=== PATIENT | female | born 1960 | race Caucasian/White ===

== ENCOUNTER 2022-03-22 20:22 | Emergency (ER) | payer BC, SELFPAY ==
--- NOTE | ~2022-03-22 | XR_ITS ---
EXAMINATION: XR CHEST CLINICAL INFORMATION: Covid positive. Pain. COMPARISON: None TECHNIQUE: 2 views of the chest were obtained. FINDINGS: The lungs are well expanded. There is no focal consolidation, edema, or effusion. No pneumothorax. The cardiomediastinal silhouette is within normal limits. No acute osseous abnormality. XR/XR chest 2V IMPRESSION: Clear lungs.
[2022-03-22 20:39] VITALS: BP 150/82; PULSE 82; RESP 18; TEMP 36.7; O2SAT 96; BMI 34.7
[2022-03-22 20:55] LABS: MANUAL DIFF FLAG NO
[2022-03-22 20:57] LABS: Basophils Percent Auto 0.4 % (0-2); Eosinophils Absolute Auto 0.2 X10*3/uL (0.0-0.4); Eosinophils Percent Auto 2.9 % (0-4); Hematocrit 44.4 % (37.0-47.0); Hemoglobin 14.8 g/dl (12.0-16.0); Imm Gran Abs Auto 0.03 X10*3/uL (0.00-0.03); Imm Gran Pct Auto 0.4 % (0.0-0.4); Lymphocytes Absolute Auto 3.4 X10*3/uL (1.2-4.9); Lymphocytes Percent Auto 46.8 % (20-40); Mean Corpuscular HGB Conc 33.3 g/dl (31.0-35.0); Mean Corpuscular Hemoglobin 29.7 pg (27.0-33.0); Mean Platelet Volume 9.3 fL (9.4-12.3); Monocytes Absolute Auto 0.5 X10*3/uL (0.1-1.2); Monocytes Percent Auto 6.3 % (2-11); Neutrophils Absolute Auto 3.2 x10*3/uL (2.0-8.3); Neutrophils Percent Auto 43.2 % (45-73); Platelet Count 274 X10*3/uL (160-400); Red Blood Count 4.99 X10*6/uL (4.20-5.50); Red Cell Distribution Width 13.5 % (11.0-16.0); White Blood Count 7.3 X10*3/uL (4.8-10.8)
[2022-03-22 21:11] LABS: COVID-19 Test Positive (Negative); IDNOW Serial# 16C4AD1C
[2022-03-22 21:11] LABS: Alanine Aminotransferase 11 U/L (0-31); Albumin Level 4.1 g/dL (3.5-5.0); Alkaline Phosphatase 64 U/L (39-117); Anion Gap 17 (12-20); Aspartate Amino Transferase 25 U/L (5-31); Bilirubin Direct < 0.2 mg/dL (0.0-0.5); Bilirubin Total 0.3 mg/dL (0.0-1.0); Blood Urea Nitrogen 14 mg/dL (9-16); Calcium 9.3 mg/dL (8.4-10.2); Carbon Dioxide 22 mmol/L (22-29); Chloride 108 mmol/L (96-108); Creatinine Clr Calc Pharmacy 82.7; Estimated Glomerular Filt Rate > 60; Glucose Random 108 mg/dL (60-115); Sodium 143 mmol/L (135-145); Total Protein 7.7 g/dL (6.5-8.0)
--- NOTE | 2022-03-22 23:59 | PC.NURSE ---
Pt visibly upset regarding wait time and nursing staff being unable to give test results out w/o the evaluation of the physician/provider. Pt educated to process of er evaluation. Verbalized education. Pt encouraged to remain in ED until evaluation is preformed. no questions regarding education.
[2022-03-23 03:05] VITALS: BP 147/78; PULSE 70; RESP 18; TEMP 36.7; O2SAT 97
--- NOTE | 2022-03-23 07:00 | ED_ITS ---
HPI - Abdominal Pain General Chief Complaint: Abdominal Pain Stated Complaint: diverticulitis Time Seen by Provider: 03/23/22 06:51 Source: patient Mode of arrival: ambulatory Limitations: no limitations History of Present Illness HPI narrative: Patient presented complaining of left lower quadrant abdominal pain at x2 days she thinks that she has diverticulitis, she has these similar pain when she had a diverticulitis, denies any fever chills vomiting and diarrhea. MD elicited complaint: abdominal pain Onset (ago): day(s) (2) Pain Consistency: constant Location: LLQ Severity: mild Quality: cramping Migration to: no migration Exacerbating factors: nothing Relieving factors: nothing Associated symptoms: denies other symptoms Related Data Previous Rx's Medication Instructions Recorded ciprofloxacin HCl 500 mg tablet 500 mg PO BID #20 tabs 03/23/22 (Cipro) metronidazole 500 mg tablet 500 mg PO Q8H 10 days #30 tabs 03/23/22 Allergies Allergy/AdvReac Type Severity Reaction Status Date / Time bee pollen [Bee Stings] Allergy Unknown SWELLING Unverified 04/19/20 14:48 insect venom [INSECT BITES] Allergy Unknown SWELLING Unverified 04/19/20 14:48 spider venom [SPIDER BITES] Allergy Unknown SWELLING Unverified 04/19/20 14:48 Review of Systems Cardiovascular: Reports no additional cardiovascular complaints Respiratory: Reports no additional respiratory complaints Gastrointestinal: Reports abdominal pain Reports system reviewed and no additional complaints, except as documented [facility] Past Medical History [facility] Narrative: diverticulitis Social History Social History Advance Directives: No Advance Directives Information Provided: No Physical Exam ED Vital Signs: Vital Signs - 24 hr 03/22/22 20:39 03/23/22 03:05 Temperature 98.1 F 98.1 F Pulse Rate 82 70 Respiratory Rate 18 18 Blood Pressure 150/82 H 147/78 H Pulse Oximetry 96 97 Oxygen Delivery Method Room Air Room Air BMI result Body Mass Index 34.7 Const Other: She looks well he is not toxic-appearing HENMT Head: Yes normal to inspection Ears: hearing grossly normal bilaterally General nose exam: Normal external nose present Face and sinus: Yes normal facial exam Throat: Yes posterior oropharynx normal Neck Neck: Yes normal visual inspection Thyroid: Thyroid normal Chest Chest palpation & inspection: normal inspection of the chest Resp Effort & Inspection: normal respiratory effort Cardio Rate: regular rate Rhythm: regular rhythm GI Other: Tenderness in the left lower quadrant no guarding and no rebound no peritoneal signs Skin General skin exam: no rashes or lesions noted Lesions: no lesions Rashes: no rashes MDM - Abdominal Pain MDM Narrative Medical decision making narrative: I discussed with the patient CT scan of the abdomen and pelvis, the patient refused a CT scan of the abdomen and pelvis she states she wants to try just antibiotic before, I will discharge her on Cipro and Flagyl, she will return if worse the any concern. Again she refuses a CT scan done today. Lab Data Result diagrams: 03/22/22 20:47 03/22/22 20:47 Labs: Lab Results 03/22/22 03/22/22 03/22/22 Range/Units 20:44 20:47 20:47 WBC 7.3 (4.8-10.8) X10*3/uL RBC 4.99 (4.20-5.50) X10*6/uL Hgb 14.8 (12.0-16.0) g/dl Hct 44.4 (37.0-47.0) % MCV 89.0 (80.0-98.0) fL MCH 29.7 (27.0-33.0) pg MCHC 33.3 (31.0-35.0) g/dl RDW 13.5 (11.0-16.0) % Plt Count 274 (160-400) X10*3/uL MPV 9.3 L (9.4-12.3) fL Immature Gran % (Auto) 0.4 (0.0-0.4) % Neut % (Auto) 43.2 L (45-73) % Lymph % (Auto) 46.8 H (20-40) % [place] % (Auto) 6.3 (2-11) % Eos % (Auto) 2.9 (0-4) % Baso % (Auto) 0.4 (0-2) % Lymph # (Auto) 3.4 (1.2-4.9) X10*3/uL [place] # (Auto) 0.5 (0.1-1.2) X10*3/uL Eos # (Auto) 0.2 (0.0-0.4) X10*3/uL Baso # (Auto) 0.0 (0.0-0.2) X10*3/uL Abs Immat Gran (auto) 0.03 (0.00-0.03) X10*3/uL Absolute Neuts (auto) 3.2 (2.0-8.3) x10*3/uL Absolute Nucleated RBC 0.000 (0.0-0.012) X10*3/uL Nucleated RBC % (auto) 0.0 (0.0-0.2) /100WBC Sodium 143 (135-145) mmol/L Potassium 4.0 (3.3-5.1) mmol/L Chloride 108 (96-108) mmol/L Carbon Dioxide 22 (22-29) mmol/L Anion Gap 17 (12-20) BUN 14 (9-16) mg/dL Creatinine 0.83 (0.5-1.4) mg/dL Estim Creat Clear Calc 82.7 Estimated GFR > 60 Random Glucose 108 (60-115) mg/dL Calcium 9.3 (8.4-10.2) mg/dL Total Bilirubin 0.3 (0.0-1.0) mg/dL Direct Bilirubin < 0.2 (0.0-0.5) mg/dL AST 25 (5-31) U/L ALT 11 (0-31) U/L Alkaline Phosphatase 64 (39-117) U/L Total Protein 7.7 (6.5-8.0) g/dL Albumin 4.1 (3.5-5.0) g/dL COVID-19 ([place]) Positive A (Negative) COVID-19 Clin Com See Note Discharge Plan Discharge Clinical Impression: Diverticulitis, COVID-19 Patient Disposition: Home, Self-Care Instructions: Diverticulitis (ED) Additional Instructions: Follow-up with your primary care physician, you declined the CT scan of the abdo men and pelvis, return if you worse a few of a fever a few vomiting Prescriptions: New ciprofloxacin HCl [Cipro] 500 mg tablet 500 mg PO BID Qty: 20 0RF metronidazole 500 mg tablet 500 mg PO Q8H 10 Days Qty: 30 0RF Interventions: ED Discharge Assessment Last Done: 03/23/22 07:23 Discharge Date/Time: 03/23/22 07:23
[2022-03-23] MEDS: levoFLOXacin 500 MG TABLET PO (07:20)
[2022-03-23] MEDS: metroNIDAZOLE 500 MG TABLET PO (07:20)
== END 2022-03-23 07:23 | disposition home or self-care (01) ==
PROVIDERS: Emergency Provider Emergency Medicine; PCP Internal Medicine
DX: U07.1 COVID-19 (principal); K57.32 Diverticulitis of large intestine without perforation or abscess without bleeding; Z79.899 Other long term (current) drug therapy
CPT/HCPCS: 71046; 80053; 82248; 85025; 87635; 99282; 99283

== ENCOUNTER 2023-09-17 17:13 | Emergency (ER) | payer BC, SELFPAY ==
[2023-08-14 15:00] VITALS: BP 134/76; BP 136/68; BP 144/62; BMI 36.1
--- NOTE | ~2023-09-17 | CT_ITS ---
EXAMINATION: CT ABDOMEN AND PELVIS WITH CONTRAST CLINICAL INFORMATION: Evaluate for diverticulitis. COMPARISON: CT abdomen/pelvis 07/29/2014. TECHNIQUE: Multidetector volumetric images were obtained from the superior aspect of the liver through the pubic symphysis following administration 85 mL of Omnipaque 350 intravenous contrast. Sagittal and coronal reformatted images were obtained on the technologist's workstation. Oral contrast: No This CT examination was performed using dose optimization techniques as appropriate, variously including the following: *Automated exposure control *Adjustment of mA and/or kV according to patient size (this includes techniques or standardized protocols for targeted exams where dose is matched to indication/reason for exam; i.e. extremities or head) *Use of iterative reconstruction technique DLP: 649 mGy-cm FINDINGS: LUNG BASES: The visualized lung bases are unremarkable. LIVER, GALLBLADDER, AND BILIARY TREE: Hepatomegaly measuring 20 cm craniocaudally. No focal hepatic lesion or biliary ductal dilatation is present. Cholelithiasis. No evidence of gallbladder wall thickening or pericholecystic inflammatory changes to suspect acute cholecystitis. PANCREAS: Unremarkable. SPLEEN: A few small calcified granulomas. Normal size. ADRENAL GLANDS: A 1.6 cm left adrenal nodule is unchanged compared to 2014 which is reassuring for benign process most likely adenoma, for which no imaging follow-up is recommended. Normal right adrenal gland. KIDNEYS AND URETERS: The kidneys are normal in size, shape, and attenuation. No hydronephrosis, hydroureter, or calculi seen. No perinephric stranding. BLADDER: Unremarkable. GASTROINTESTINAL TRACT: Wall thickening and inflammatory changes centered around diverticuli in the mid to distal descending colon. There is also wall thickening in the sigmoid colon without significant associated fat stranding. No free air. No organized extraluminal collection. No evidence of bowel obstruction. Normal appendix. ABDOMINAL WALL: No significant hernia is appreciated. LYMPH NODES: No lymphadenopathy. VASCULAR: Severe atherosclerotic disease. New aneurysm of the abdominal aorta measuring 2.6 cm (2:41) at which point there is severe mixed calcified and noncalcified atherosclerotic plaques with eccentric thrombosis. PELVIC VISCERA: The uterus fundus is not well delineated and contacts the adjacent sigmoid but without evidence of air in the endometrial cavity/cervix. No free fluid. No discrete adnexal mass, although the ovaries are not well delineated. OSSEOUS STRUCTURES: No acute or aggressive appearing osseous findings. Degenerative changes of the spine. CT/CT abdomen pelvis w IV con IMPRESSION: 1. Acute diverticulitis in the descending colon. Additional areas of wall thickening in the sigmoid but without significant inflammatory changes that could represent chronic hypertrophy in the context of severe diverticulosis. If the patient is due, evaluation with outpatient colonoscopy is recommended. 2. Hepatomegaly. 3. Cholelithiasis without findings to suspect acute cholecystitis. 4. New aneurysm of the abdominal aorta measuring 2.6 cm with significant eccentric thrombosis and atherosclerotic disease. Based on published guidelines in J Am Petros Radiol 2013; 10(10):789-794 and J Vasc Surg. 2018; 67:2-77, the recommendation for an abdominal aorta with diameter 2.6-2.9 cm is follow-up every 5 years if the aorta that meets the criteria for AAA (>1.5 x proximal normal segment; no f/u if < 1.5 x proximal normal segment; no f/u for aorta < 2.6 cm).
--- NOTE | 2023-09-17 17:14 | ECG_ITS ---
Test Reason : sob Blood Pressure : / mmHG Vent. Rate : 094 BPM Atrial Rate : 094 BPM P-R Int : 162 ms QRS Dur : 112 ms QT Int : 410 ms P-R-T Axes : 069 -35 021 degrees QTc Int : 512 ms Normal sinus rhythm Left axis deviation Incomplete right bundle branch block Moderate voltage criteria for LVH, may be normal variant ( R in aVL , Chele product ) Prolonged QT Abnormal ECG When compared with ECG of 05-NOV-2012 06:50, Incomplete right bundle branch block is now Present Referred By: Soraida Spencer Electronically Signed By:Ra Weiss
--- NOTE | 2023-09-17 17:38 | MHC.EDTECH ---
Patient ekg taken and was read by Provider .
--- NOTE | 2023-09-17 18:03 | ED.GENADULT ---
HPI - General Adult General Chief complaint: Allergic Reaction Stated complaint: sob,hx heart attack in march, feels like pass out Time Seen by Provider: 09/17/23 18:12 Source: patient Mode of arrival: ambulatory Limitations: no limitations History of Present Illness HPI narrative: Patient comes to the emergency room complaining of diffuse hives, itching, trouble swallowing. Patient states that a few minutes prior to this happening, patient took a dose of ciprofloxacin and metronidazole that she started taking for diverticulitis. Patient states that she has had diverticulitis in the past multiple times, has been taking these 2 antibiotics but has never had any allergic reaction. Patient states her only allergies are to insect bite/sting. Patient complaining of nausea vomiting, no diarrhea complaining of left lower quadrant pain Related Data Previous Rx's Medication Instructions Recorded ciprofloxacin HCl 500 mg tablet 500 mg PO BID #20 tabs 03/23/22 (Cipro) metronidazole 500 mg tablet 500 mg PO Q8H 10 days #30 tabs 03/23/22 amoxicillin 500 mg-potassium 1 tab PO BID #20 tabs 09/17/23 clavulanate 125 mg tablet (Augmentin) ketorolac 10 mg tablet 10 mg PO TID PRN pain 5 days #7 09/17/23 tabs oxycodone 5 mg tablet 5 mg PO BID PRN pain #2 tabs 09/17/23 tramadol 50 mg tablet 50 mg PO BID PRN pain #7 tabs 09/17/23 Allergies Allergy/AdvReac Type Severity Reaction Status Date / Time bee pollen [Bee Stings] Allergy Unknown SWELLING Verified 09/17/23 18:05 insect venom [INSECT BITES] Allergy Unknown SWELLING Verified 09/17/23 18:05 spider venom [SPIDER BITES] Allergy Unknown SWELLING Verified 09/17/23 18:05 Review of Systems Review of Systems: Constitutional : No Weight loss, No Fever, No Chills, No Night Sweats, No Fatigue, No Malaise ENT/Mouth : No Hearing loss, No Ear Pain, No Nasal Congestion, No Sinus Pain, No Hoarseness, complaining of foreign body sensation in the throat Eyes: No Eye Pain, No Swelling, No Redness, No Foreign Body, No Discharge, No Vision Changes Cardiovascular : No Chest Pain, No SOB, No Dyspnea on Exertion, No Orthopnea, No Edema, No Palpitations Respiratory : No Cough, No Sputum, No Wheezing, No Smoke Exposure, No Dyspnea Gastrointestinal : No Nausea, No Vomiting, No Diarrhea, No Constipation, No abdominal Pain, No Hematochezia, No Melena Genitourinary : no irregular bleeding, No Dysuria, No Urinary Frequency, No Hematuria, No Urinary Incontinence, No Urgency, No Flank Pain, No Urinary Flow Changes, No Hesitancy Musculoskeletal : No joint pain, No Myalgias, No Joint Swelling Skin : Complaining of diffuse hives and itching Neuro : No Weakness, No Numbness, No Paresthesias, No Loss of Consciousness, No Dizziness, No Headache Psych : No Anxiety/Panic, No Depression, No SI/HI/AH/VH, No Social Issues, Heme/Lymph: No Bruising, No Bleeding,No Lymphadenopathy Endocrine : No Polyuria, No Polydipsia, No Temperature Intolerance [facility] Past Medical History Medical History (Updated 09/17/23 @ 21:15 by Chelsea Orta MD) Hypertension Diverticulitis Social History Social History Patient Tobacco Use Status: Current someday Tobacco user Tobacco use type: Cigarette Cigarette Packs Per Day: 0.1 Years Smoked: 20 Use of substances other than those prescribed or required for medical reasons: Unknown Advance Directives: No Advance Directives Information Provided: No Physical Exam ED Vital Signs: Vital Signs - 24 hr 09/17/23 18:05 09/17/23 18:19 09/17/23 18:37 Temperature 97.8 F 98.6 F Pulse Rate 98 94 95 Respiratory Rate 16 22 H Blood Pressure 132/70 154/87 H 157/74 H Pulse Oximetry 96 98 Oxygen Delivery Method Room Air Room Air 09/17/23 19:37 Temperature 99.0 F Pulse Rate 95 Respiratory Rate 17 Blood Pressure 150/77 H Pulse Oximetry 98 Oxygen Delivery Method Room Air BMI result Body Mass Index 34.7 Const Other: Appearance: Alert. Oriented X3. Anxious Eyes: Pupils equal, round and reactive to light. ENT: Normal lips, normal tongue, mild swelling of the palate, uvula mildly swollen, midline Neck: Normal inspection. Neck supple. No lymph nodes noted. No crepitus CVS: Normal heart rate and rhythm. Pulses normal. Normal S1 and S2 Respiratory: No respiratory distress. Breath sounds normal. No Wheezing. No rales Abdomen: Soft and nontender. No rigidity. No distention. Skin: Diffuse flushing, hives head to toe Extremities: No lower extremity edema. No Lacerations. No Rash Neuro: Oriented X 3. No motor deficit. No sensory deficit. Moving all extremities. No slurred speech. CN 2 through 12 grossly intact Psych: calm, cooperative, normal affect Course Course Course Narrative: This is a rapid medical exam: Additional HPI, ROS, PE not included below will be deferred to primary provider. Patient is a 63-year-old female with history of AL with stent is March presenting to the emergency department with complaint of lower abdominal pain since last night, vomiting, had cipro and flagyl at home from PCP for flares, took this at home around 4:30-5 and felt itchy, sweaty and dyspneic. Appears flushed, uvula edema noted, charge nurse notified, patient brought to room 4. Dr. Luna aware. Medications Administered Discontinued Medications Generic Name Dose Route Start Last Admin Trade Name Freq PRN Reason Stop Dose Admin Diphenhydramine HCl 50 mg 09/17/23 18:16 09/17/23 18:23 Diphenhydramine Hcl 50 Mg/Ml Vial IVPUSH 09/17/23 18:17 50 mg ONCE ONE Administration Epinephrine 0.3 mg 09/17/23 18:16 09/17/23 18:19 Epinephrine 1 Mg/Ml Vial IM 09/17/23 18:17 0.3 mg STAT STA Administration Famotidine 20 mg 09/17/23 18:16 09/17/23 18:23 Famotidine/Pf 20 Mg/2 Ml Vial IVPUSH 09/17/23 18:17 20 mg ONCE ONE Administration Sodium Chloride 1,000 mls @ 999 mls/hr 09/17/23 18:16 09/17/23 20:06 Ns IVCONT 09/17/23 19:16 Infused .Q1H1M ONE Infusion Iohexol 100 ml 09/17/23 18:54 09/17/23 18:56 Iohexol 350 Mg/Ml 100 Ml Infus..Btl IV 09/17/23 18:55 85 ml ONCE ONE Administration Methylprednisolone Sodium Succinate 125 mg 09/17/23 18:16 09/17/23 18:23 Methylprednisolone Sod Succ 125 Mg/2 Ml Vial IVPUSH 02/15/24 18:17 125 mg ONCE ONE Administration Ondansetron HCl 4 mg 09/17/23 18:21 09/17/23 18:39 Ondansetron Hcl 4 Mg/2 Ml Vial IVPUSH 09/17/23 18:22 4 mg ONCE ONE Administration Medical Decision Making Medical Decision Making [facility] Narrative: -patient receiving IM epinephrine, IV Solu-Medrol, Benadryl, Pepcid and IV fluids -patient's vitals stable -after IV treatment mentioned above, patient states that she feels almost back to normal, denies any rash, no itchiness no shortness of breath -on physical exam, patient is not itching, the palatine swelling decreased significantly. Patient states that overall she feels much better. -patient instructed to discontinue taking ciprofloxacin and metronidazole, patient's antibiotics were switched to Augmentin for diverticulitis. -discussed with the patient to follow-up with her primary care physician, as she may need a referral to immunology for a skin scratch test to figure out what she is allergic to -my interpretation of CT scan of the abdomen: No obvious perforation secondary to diverticulitis -radiology report, incidental finding of an abdominal aortic aneurysm measuring 3.6 cm with significant eccentric thrombosis and atherosclerotic disease. I discussed the patient with Dr. Ott who is covering for vascular surgery. Patient can follow-up on an outpatient basis. Patient is already taking aspirin and atorvastatin Differential Diagnosis Differential Diagnoses: The differential diagnosis associated with the presentation includes (Anaphylaxis, angioedema) Admission/Observation Consideration of admission/observation: Escalation of care including admission/observation considered (Given patient's initial presentation, patient was considered) Lab Data [facility] Lab Attestation statement: I reviewed the patient's lab results. 09/17/23 20:03 09/17/23 20:03 Labs: Lab Results 09/17/23 09/17/23 Range/Units 18:25 20:03 WBC 16.9 H (4.8-10.8) X10*3/uL RBC 4.33 (4.20-5.50) X10*6/uL Hgb 13.3 (12.0-16.0) g/dl Hct 39.9 (37.0-47.0) % MCV 92.1 (80.0-98.0) fL MCH 30.7 (27.0-33.0) pg MCHC 33.3 (31.0-35.0) g/dl RDW 13.7 (11.0-16.0) % Plt Count 270 (160-400) X10*3/uL MPV 9.6 (9.4-12.3) fL Immature Gran % (Auto) 0.5 H (0.0-0.4) % Neut % (Auto) 79.9 H (45-73) % Lymph % (Auto) 15.6 L (20-40) % [place] % (Auto) 3.7 (2-11) % Eos % (Auto) 0.1 (0-4) % Baso % (Auto) 0.2 (0-2) % Lymph # (Auto) 2.6 (1.2-4.9) X10*3/uL [place] # (Auto) 0.6 (0.1-1.2) X10*3/uL Eos # (Auto) 0.0 (0.0-0.4) X10*3/uL Baso # (Auto) 0.0 (0.0-0.2) X10*3/uL Abs Immat Gran (auto) 0.08 H (0.00-0.03) X10*3/uL Absolute Neuts (auto) 13.5 H (2.0-8.3) x10*3/uL Absolute Nucleated RBC 0.000 (0.0-0.012) X10*3/uL Nucleated RBC % (auto) 0.0 (0.0-0.2) /100WBC Sodium 141 (135-145) mmol/L Potassium 3.8 (3.3-5.1) mmol/L Chloride 110 H (96-108) mmol/L Carbon Dioxide 22 (22-29) mmol/L Anion Gap 13 (12-20) BUN 14 (9-16) mg/dL Creatinine 0.75 (0.5-1.4) mg/dL Estim Creat Clear Calc 89.2 Estimated GFR > 60 Random Glucose 126 H (60-115) mg/dL Lactic Acid 1.1 (0.5-2.0) mmol/L Calcium 8.9 (8.4-10.2) mg/dL Total Bilirubin 0.4 (0.0-1.0) mg/dL Direct Bilirubin 0.2 (0.0-0.5) mg/dL AST 26 (5-31) U/L ALT 14 (0-31) U/L Alkaline Phosphatase 67 (39-117) U/L Total Protein 7.3 (6.5-8.0) g/dL Albumin 3.8 (3.5-5.0) g/dL Lipase 21 17 (8-78) U/L Radiology Impression Discussion of test interpretation with radiology: I have reviewed the radiologist's reading. Radiologist Impression: FINDINGS: LUNG BASES: The visualized lung bases are unremarkable. LIVER, GALLBLADDER, AND BILIARY TREE: Hepatomegaly measuring 20 cm craniocaudally. No focal hepatic lesion or biliary ductal dilatation is present. Cholelithiasis. No evidence of gallbladder wall thickening or pericholecystic inflammatory changes to suspect acute cholecystitis. PANCREAS: Unremarkable. SPLEEN: A few small calcified granulomas. Normal size. ADRENAL GLANDS: A 1.6 cm left adrenal nodule is unchanged compared to 2014 which is reassuring for benign process most likely adenoma, for which no imaging follow-up is recommended. Normal right adrenal gland. KIDNEYS AND URETERS: The kidneys are normal in size, shape, and attenuation. No hydronephrosis, hydroureter, or calculi seen. No perinephric stranding. BLADDER: Unremarkable. GASTROINTESTINAL TRACT: Wall thickening and inflammatory changes centered around diverticuli in the mid to distal descending colon. There is also wall thickening in the sigmoid colon without significant associated fat stranding. No free air. No organized extraluminal collection. No evidence of bowel obstruction. Normal appendix. ABDOMINAL WALL: No significant hernia is appreciated. LYMPH NODES: No lymphadenopathy. VASCULAR: Severe atherosclerotic disease. New aneurysm of the abdominal aorta measuring 2.6 cm (2:41) at which point there is severe mixed calcified and noncalcified atherosclerotic plaques with eccentric thrombosis. PELVIC VISCERA: The uterus fundus is not well delineated and contacts the adjacent sigmoid but without evidence of air in the endometrial cavity/cervix. No free fluid. No discrete adnexal mass, although the ovaries are not well delineated. OSSEOUS STRUCTURES: No acute or aggressive appearing osseous findings. Degenerative changes of the spine. CT/CT abdomen pelvis w IV con IMPRESSION: 1. Acute diverticulitis in the descending colon. Additional areas of wall thickening in the sigmoid but without significant inflammatory changes that could represent chronic hypertrophy in the context of severe diverticulosis. If the patient is due, evaluation with outpatient colonoscopy is recommended. 2. Hepatomegaly. 3. Cholelithiasis without findings to suspect acute cholecystitis. 4. New aneurysm of the abdominal aorta measuring 2.6 cm with significant eccentric thrombosis and atherosclerotic disease. Based on published guidelines in J Am Petros Radiol 2013; 10(10):789-794 and J Vasc Surg. 2018; 67:2-77, the recommendation for an abdominal aorta with diameter 2.6-2.9 cm is follow-up every 5 years if the aorta that meets the criteria for AAA (>1.5 x proximal normal segment; no f/u if < 1.5 x proximal normal segment; no f/u for aorta < 2.6 cm). Chronic Conditions Patient?s care impacted by: Other (Diverticulitis) Critical Care Time Critical Care Time Critical Care Time: Yes Total Critical Care Time: 60 Attestation: I have personally provided critical care time. Time includes review of lab data, radiology results, discussion with consultants, and monitoring for potential decompensation. Intervention performed as documented. Discharge Plan Discharge Clinical Impression: Anaphylaxis, Diverticulitis Patient Disposition: Home, Self-Care Instructions: Diverticulitis (ED), General Allergic Reaction (ED) Additional Instructions: Please make sure that you take stool softeners, or MiraLax to have soft bowel movements. Please follow-up with your primary care physician tomorrow. If you have any worsening or new symptoms, please return to the emergency room or call 911 Prescriptions: New amoxicillin-pot clavulanate [Augmentin] 500-125 mg tablet 1 tab PO BID Qty: 20 0RF tramadol 50 mg tablet 50 mg PO BID PRN (Reason: pain) Qty: 7 0RF ketorolac 10 mg tablet 10 mg PO TID PRN (Reason: pain) 5 Days Qty: 7 0RF oxycodone 5 mg tablet 5 mg PO BID PRN (Reason: pain) Qty: 2 0RF Rx Instructions: Partial Fill upon patient request. P.r.n. only severe pain if tramadol does not work. No Action ciprofloxacin HCl [Cipro] 500 mg tablet 500 mg PO BID Qty: 20 0RF metronidazole 500 mg tablet 500 mg PO Q8H 10 Days Qty: 30 0RF
[2023-09-17 18:05] VITALS: BP 132/70; PULSE 98; RESP 16; TEMP 36.6; O2SAT 96; BMI 34.7
[2023-09-17 18:19] VITALS: BP 154/87; PULSE 94
[2023-09-17] MEDS: EPINEPHrine 1 MG/ML VIAL 0.3 MG IM (18:19)
[2023-09-17] MEDS: 0.9 % Sodium Chloride 1,000 ML 999 ML IVCONT (18:23)
[2023-09-17] MEDS: Famotidine/PF 20 MG/2 ML VIAL IVPUSH (18:23)
[2023-09-17] MEDS: diphenhydrAMINE HCL 50 MG/ML VIAL IVPUSH (18:23)
[2023-09-17] MEDS: methylPREDNISolone Sod Succ 125 MG/2 ML VIAL IVPUSH (18:23)
[2023-09-17 18:37] VITALS: BP 157/74; PULSE 95; RESP 22; TEMP 37; O2SAT 98
[2023-09-17] MEDS: ondansetron HCL 4 MG/2 ML VIAL IVPUSH (18:39)
[2023-09-17 18:41] LABS: Lactic Acid 1.1 mmol/L (0.5-2.0)
[2023-09-17 18:43] LABS: Lipase 21 U/L (8-78)
[2023-09-17] MEDS: iohexoL 350 MG/ML 100 ML INFUS..BTL IV (18:56)
[2023-09-17 19:37] VITALS: BP 150/77; PULSE 95; RESP 17; TEMP 37.2; O2SAT 98
[2023-09-17 20:07] LABS: MANUAL DIFF FLAG NO
[2023-09-17 20:08] LABS: Basophils Percent Auto 0.2 % (0-2); Eosinophils Percent Auto 0.1 % (0-4); Hematocrit 39.9 % (37.0-47.0); Hemoglobin 13.3 g/dl (12.0-16.0); Imm Gran Abs Auto 0.08 X10*3/uL (0.00-0.03); Imm Gran Pct Auto 0.5 % (0.0-0.4); Lymphocytes Absolute Auto 2.6 X10*3/uL (1.2-4.9); Lymphocytes Percent Auto 15.6 % (20-40); Mean Corpuscular HGB Conc 33.3 g/dl (31.0-35.0); Mean Corpuscular Hemoglobin 30.7 pg (27.0-33.0); Mean Corpuscular Volume 92.1 fL (80.0-98.0); Mean Platelet Volume 9.6 fL (9.4-12.3); Monocytes Absolute Auto 0.6 X10*3/uL (0.1-1.2); Monocytes Percent Auto 3.7 % (2-11); Neutrophils Absolute Auto 13.5 x10*3/uL (2.0-8.3); Neutrophils Percent Auto 79.9 % (45-73); Platelet Count 270 X10*3/uL (160-400); Red Blood Count 4.33 X10*6/uL (4.20-5.50); Red Cell Distribution Width 13.7 % (11.0-16.0); White Blood Count 16.9 X10*3/uL (4.8-10.8)
[2023-09-17 20:22] LABS: Alanine Aminotransferase 14 U/L (0-31); Albumin Level 3.8 g/dL (3.5-5.0); Alkaline Phosphatase 67 U/L (39-117); Anion Gap 13 (12-20); Aspartate Amino Transferase 26 U/L (5-31); Bilirubin Direct 0.2 mg/dL (0.0-0.5); Bilirubin Total 0.4 mg/dL (0.0-1.0); Blood Urea Nitrogen 14 mg/dL (9-16); Calcium 8.9 mg/dL (8.4-10.2); Carbon Dioxide 22 mmol/L (22-29); Chloride 110 mmol/L (96-108); Creatinine Clr Calc Pharmacy 89.2; Estimated Glomerular Filt Rate > 60; Glucose Random 126 mg/dL (60-115); Lipase 17 U/L (8-78); Potassium 3.8 mmol/L (3.3-5.1); Sodium 141 mmol/L (135-145); Total Protein 7.3 g/dL (6.5-8.0)
[2023-09-17 21:30] VITALS: BP 124/62; PULSE 95; RESP 17; TEMP 37.3; O2SAT 95
[2023-09-17] MEDS: traMADoL HCL 50 MG TABLET PO (21:30)
[2023-09-17] MEDS: Amoxicillin/Potassium Clav 500 MG TABLET PO (21:31)
--- NOTE | 2023-09-18 01:48 | PC.NURSE ---
09/17/2023. Assumed care of pt at 1900. Discussed case with , no labs ordered at that time. ordered labs and they were collected and sent to the lab. Pt brought to bathroom, stable on feet, steady gait. PT given meds. Discharge paperwork reviewed with patient and she verbalized understanding of discharge. IV removed.
== END 2023-09-17 21:40 | disposition home or self-care (01) ==
PROVIDERS: Emergency Provider Emergency Medicine; PCP Internal Medicine
DX: K57.32 Diverticulitis of large intestine without perforation or abscess without bleeding (principal); T88.6XXA Anaphylactic reaction due to adverse effect of correct drug or medicament properly administered, initial encounter; T36.8X5A Adverse effect of other systemic antibiotics, initial encounter; T37.3X5A Adverse effect of other antiprotozoal drugs, initial encounter; L50.9 Urticaria, unspecified; Y92.9 Unspecified place or not applicable; R11.2 Nausea with vomiting, unspecified; R10.32 Left lower quadrant pain; I10 Essential (primary) hypertension; F17.210 Nicotine dependence, cigarettes, uncomplicated
CPT/HCPCS: 36415; 74177; 80048; 80076; 83605; 83690; 85025; 87040; 93005; 96361; 96372; 96374; 96375; 99285; J0171; J1200; J2405; J2930; Q9967

== ENCOUNTER → 2023-09-17 17:14 | Outpatient (BNV) | payer BC, SELFPAY ==
[2023-08-14 15:00] VITALS: BP 134/76; BP 136/68; BP 144/62; BMI 36.1
== END ==
PROVIDERS: Emergency Provider Emergency Medicine; PCP Internal Medicine; Visit Provider Internal Medicine Cardiovascular Disease
DX: I45.81 Long QT syndrome (principal)
CPT/HCPCS: 93010

== ENCOUNTER 2024-03-01 19:51 | Emergency (ER) | payer BC, SELFPAY ==
[2023-08-14 15:00] VITALS: BP 134/76; BP 136/68; BP 144/62; BMI 36.1
[2024-03-01 19:54] VITALS: BP 133/67; PULSE 102; RESP 16; TEMP 36.8; O2SAT 93; BMI 39.2
--- NOTE | 2024-03-01 19:54 | ED.ALLEREA ---
HPI - Allergic Reaction General Chief complaint: Allergic Reaction Stated complaint: stung by 8 bees/allergic/trouble breathing Time Seen by Provider: 03/01/24 20:23 Source: patient Mode of arrival: ambulatory Limitations: no limitations History of Present Illness ED Provider: Dr. Chelsea Orta HPI narrative: Patient comes to the emergency room complaining of getting stung by yellow jackets. Patient states she was doing some yd work and out of no where several yellow jackets came from under ground and start her. Patient has a proximally 10 stings throughout the body. Patient states she feels slightly short of breath. Patient complaining of diffuse itching and hives. Prior to arrival patient took 50 mg of p.o. Benadryl without any significant relief Related Data Previous Rx's ?Medication ?Instructions ?Recorded ciprofloxacin HCl 500 mg tablet 500 mg PO BID #20 tabs 03/23/22 (Cipro) metronidazole 500 mg tablet 500 mg PO Q8H 10 days #30 tabs 03/23/22 amoxicillin 500 mg-potassium 1 tab PO BID #20 tabs 09/17/23 clavulanate 125 mg tablet (Augmentin) ketorolac 10 mg tablet 10 mg PO TID PRN pain 5 days #7 09/17/23 tabs oxycodone 5 mg tablet 5 mg PO BID PRN pain #2 tabs 09/17/23 tramadol 50 mg tablet 50 mg PO BID PRN pain #7 tabs 09/17/23 diphenhydramine HCl 2 % topical 1 appl topical QID PRN itching 03/01/24 gel (Benadryl) #103 mL epinephrine 0.3 mg/0.3 mL 0.3 mg (0.3 mL) IM Q4H PRN 03/01/24 injection, auto-injector (EpiPen) anaphylaxis #2 ea ibuprofen 600 mg tablet 600 mg PO Q8H PRN fever or pain 03/01/24 #20 tabs pramoxine-calamine 1 %-8 % lotion 1 appl topical QID PRN itching 03/01/24 (Calamine Medicated) #177 mL Allergies Allergy/AdvReac Type Severity Reaction Status Date / Time bee pollen [Bee Stings] Allergy Unknown SWELLING Verified 03/01/24 19:56 insect venom [INSECT BITES] Allergy Unknown SWELLING Verified 03/01/24 19:56 spider venom [SPIDER BITES] Allergy Unknown SWELLING Verified 03/01/24 19:56 Review of Systems Review of Systems: Constitutional : No Weight loss, No Fever, No Chills, No Night Sweats, No Fatigue, No Malaise ENT/Mouth : No Hearing loss, No Ear Pain, No Nasal Congestion, No Sinus Pain, No Hoarseness, No sore throat, No Rhinorrhea, No Swallowing Difficulty Eyes: No Eye Pain, No Swelling, No Redness, No Foreign Body, No Discharge, No Vision Changes Cardiovascular : No Chest Pain, No SOB, No Dyspnea on Exertion, No Orthopnea, No Edema, No Palpitations Respiratory : No Cough, No Sputum, No Wheezing, No Smoke Exposure, No Dyspnea Gastrointestinal : No Nausea, No Vomiting, No Diarrhea, No Constipation, No abdominal Pain, No Hematochezia, No Melena Genitourinary : no irregular bleeding, No Dysuria, No Urinary Frequency, No Hematuria, No Urinary Incontinence, No Urgency, No Flank Pain, No Urinary Flow Changes, No Hesitancy Musculoskeletal : No joint pain, No Myalgias, No Joint Swelling Skin : Diffuse hives, itching, at least in painful yellow jacket stings Neuro : No Weakness, No Numbness, No Paresthesias, No Loss of Consciousness, No Dizziness, No Headache Psych : No Anxiety/Panic, No Depression, No SI/HI/AH/VH, No Social Issues, Heme/Lymph: No Bruising, No Bleeding,No Lymphadenopathy Endocrine : No Polyuria, No Polydipsia, No Temperature Intolerance PMFSH Past Medical History Medical History Hypertension Diverticulitis Social History Social History Patient Tobacco Use Status: Current someday Tobacco user Tobacco use type: Cigarette Cigarette Packs Per Day: 0.1 Years Smoked: 20 Smoked in Last 30 Days: Yes Use of substances other than those prescribed or required for medical reasons: No Advance Directives: No Advance Directives Information Provided: No Do you have a plan to hurt others: No Plan Patient : No Physical Exam ED Vital Signs: Vital Signs - 24 hr 03/01/24 19:54 03/01/24 20:31 Temperature 98.2 F Pulse Rate 102 H 75 Respiratory Rate 16 12 Blood Pressure 133/67 Pulse Oximetry 93 Oxygen Delivery Method Room Air BMI result Body Mass Index 39.2 Const Other: Appearance: Alert. Oriented X3. No acute distress. Eyes: Pupils equal, round and reactive to light. ENT: Pharynx normal. No angioedema Neck: Normal inspection. Neck supple. No lymph nodes noted. No crepitus CVS: Normal heart rate and rhythm. Pulses normal. Normal S1 and S2 Respiratory: No respiratory distress. Breath sounds normal. No Wheezing. No rales , very mild occasional wheezing, oxygen saturation 92% on room air Abdomen: Soft and nontender. No rigidity. No distention. Skin: Skin warm and dry. Patient has between 10-15 yellow jacket stings. Diffuse hives Extremities: No lower extremity edema. No Lacerations. No Rash Neuro: Oriented X 3. No motor deficit. No sensory deficit. Moving all extremities. No slurred speech. CN 2 through 12 grossly intact Psych: calm, cooperative, normal affect Course Course Course Narrative: This is a Rapid Medical Examination (RME) performed by Reese Chavis PA-C in triage. Full HPI, ROS, assessment and treatment plan per primary provider in the Main ED. 63 yo female with history of allergies to insect stings presents to the ER for evaluation after she was stung by multiple bees about 30 minutes ago. developed SOB, swelling and hives almost immediately so she took benadryl. multiple hives on extremities with tingling sensation. no swelling of the lips, tongue or face. Plan: room, medicate and monitor Medications Administered Discontinued Medications Generic Name Dose Route Start Last Admin Trade Name Freq PRN Reason Stop Dose Admin Albuterol Sulfate 2.5 mg/ 5 mg 03/01/24 20:25 03/01/24 20:30 Albuterol Sulfate 2.5 mg INHALE 03/01/24 20:26 5 mg ONCE ONE Administration Diphenhydramine HCl 25 mg 03/01/24 19:56 03/01/24 21:56 Diphenhydramine Hcl 50 Mg/Ml Vial IVPUSH 03/01/24 19:57 Not Given ONCE ONE Diphenhydramine HCl 50 mg 03/01/24 20:23 03/01/24 20:37 Diphenhydramine Hcl 50 Mg/Ml Vial IVPUSH 03/01/24 20:24 50 mg ONCE ONE Administration Famotidine 20 mg 03/01/24 20:23 03/01/24 20:37 Famotidine/Pf 20 Mg/2 Ml Vial IVPUSH 03/01/24 20:24 20 mg ONCE ONE Administration Sodium Chloride 1,000 mls @ 999 mls/hr 03/01/24 20:23 03/01/24 22:04 Ns IVCONT 03/01/24 21:23 Infused .Q1H1M ONE Infusion Ibuprofen 600 mg 03/01/24 21:43 03/01/24 21:55 Ibuprofen 600 Mg Tablet PO 03/01/24 21:44 600 mg ONCE ONE Administration Methylprednisolone Sodium Succinate 125 mg 03/01/24 20:23 03/01/24 20:38 Methylprednisolone Sod Succ 125 Mg/2 Ml Vial IVPUSH 03/01/24 20:24 125 mg ONCE ONE Administration Medical Decision Making Medical Decision Making [facility] Narrative: -patient received IV fluids, Solu-Medrol, diphenhydramine, Pepcid, IV fluids and nebulization treatment. -overall patient feels better. Patient complaining now of localized pain. Patient receiving topical hydrocortisone. Patient was also given p.o. ibuprofen -after the above-mentioned treatment, patient has hives and erythema has resolved. However, patient is still having localized pain Differential Diagnosis Differential Diagnoses: The differential diagnosis associated with the presentation includes (Allergic reaction to bee stings versus hornets, anaphylaxis, hypersensitivity reaction) Admission/Observation Consideration of admission/observation: Escalation of care including admission/observation considered (Given the amount of times that the patient got stung on initial presentation, observation was considered) Critical Care Time Critical Care Time Critical Care Time: Yes Total Critical Care Time: 60 Attestation: I have personally provided critical care time. Time includes review of lab data, radiology results, discussion with consultants, and monitoring for potential decompensation. Intervention performed as documented. Discharge Plan Discharge Clinical Impression: Sting from hornet, wasp, or bee, Allergic reaction Patient Disposition: Home, Self-Care Instructions: Insect Bite or Sting (ED), General Allergic Reaction (ED) Additional Instructions: Please follow-up with your primary care physician tomorrow. If you have any worsening or new symptoms, please return to the emergency room or call 911 Prescriptions: New Benadryl 2 % gel 1 appl topical QID PRN (Reason: itching) Qty: 103 0RF Calamine Medicated 1-8 % lotion 1 appl topical QID PRN (Reason: itching) Qty: 177 0RF ibuprofen 600 mg tablet 600 mg PO Q8H PRN (Reason: fever or pain) Qty: 20 0RF epinephrine [EpiPen] 0.3 mg/0.3 mL auto-injector 0.3 mg IM Q4H PRN (Reason: anaphylaxis) Qty: 2 0RF No Action ciprofloxacin HCl [Cipro] 500 mg tablet 500 mg PO BID Qty: 20 0RF metronidazole 500 mg tablet 500 mg PO Q8H 10 Days Qty: 30 0RF amoxicillin-pot clavulanate [Augmentin] 500-125 mg tablet 1 tab PO BID Qty: 20 0RF tramadol 50 mg tablet 50 mg PO BID PRN (Reason: pain) Qty: 7 0RF ketorolac 10 mg tablet 10 mg PO TID PRN (Reason: pain) 5 Days Qty: 7 0RF oxycodone 5 mg tablet 5 mg PO BID PRN (Reason: pain) Qty: 2 0RF Rx Instructions: Partial Fill upon patient request. P.r.n. only severe pain if tramadol does not work. Stand Alone Forms: Work/School Release Print Language: Malay
[2024-03-01] MEDS: Albuterol Sulfate 2.5 MG, Albuterol Sulfate (0.083%) 2.5 MG 5 MG INHALE (20:30)
[2024-03-01 20:31] VITALS: PULSE 75; RESP 12; O2SAT 94
[2024-03-01] MEDS: diphenhydrAMINE HCL 50 MG/ML VIAL IVPUSH (20:37)
[2024-03-01] MEDS: Famotidine/PF 20 MG/2 ML VIAL IVPUSH (20:37)
[2024-03-01] MEDS: 0.9 % Sodium Chloride 1,000 ML 999 ML IVCONT (20:37)
[2024-03-01] MEDS: methylPREDNISolone Sod Succ 125 MG/2 ML VIAL IVPUSH (20:38)
[2024-03-01] MEDS: Ibuprofen 600 MG TABLET PO (21:55)
[2024-03-01] MEDS: Hydrocortisone 1 % Ointment 28.35 GM TUBE 1 APPL TOPICAL (23:04)
[2024-03-01 23:09] VITALS: BP 120/56; PULSE 84; RESP 16; TEMP 36.8; O2SAT 96
== END 2024-03-01 23:10 | disposition home or self-care (01) ==
PROVIDERS: Emergency Provider Emergency Medicine; PCP Internal Medicine
DX: R06.02 Shortness of breath (principal); T63.441A Toxic effect of venom of bees, accidental (unintentional), initial encounter; L50.0 Allergic urticaria; L29.9 Pruritus, unspecified; Y92.89 Other specified places as the place of occurrence of the external cause; Y93.9 Activity, unspecified; Y92.9 Unspecified place or not applicable; Y99.8 Other external cause status
CPT/HCPCS: 94640; 96361; 96374; 96375; 99284; J1200; J2919